=== PATIENT | female | born 1955 | race Caucasian/White ===

== ENCOUNTER 2022-09-26 16:45 | Emergency (ER) | payer MEDICAID ==
[~2022-09-26] VITALS: Ht 152.4 cm; Wt 68.9 kg
--- NOTE | 2022-09-26 17:02 | NUR ---
TO ER BED 4. [id number] HOME C/O R KNEE PAIN +DEFORMITY S/P MECHANICAL GLF.100MCG FENTANYL GIVEN LEARNING AND DEVELOPMENT ASSOCIATE. BLOOD GLUCOSE 470 IN THE FIELD. PAIN 8/10 ON PAIN SCALE. ATTACHED TO MONITOR, VITALS WITHIN NORMAL LIMITS. AWAITING MD ORDERS.
[2022-09-26] MEDS ORDERED: MORPHINE SULFATE INJ 4 MG/ML DISP.SYRIN ONE (17:58)
[2022-09-26] MEDS ORDERED: MORPHINE SULFATE INJ 2 MG/ML DISP.SYRIN IV ONE (18:00)
--- NOTE | 2022-09-26 18:15 | NUR ---
DR AV VIDAL, TALKING TO DR MALDONADO.
--- NOTE | 2022-09-26 18:37 | NUR ---
COVID TEST COLLECTED AND SENT
--- NOTE | 2022-09-26 18:40 | NUR ---
PT TAKEN TO CT VIA [facility]
[2022-09-26 19:02] LABS: CALCIUM, SERUM 8.9 mg/dL (8.5-10.1); CREATININE 0.8 mg/dL (0.6-1.3); POTASSIUM 4.1 mmol/L (3.5-5.1)
--- NOTE | 2022-09-26 19:15 | NUR ---
ELSIE OCCUPATIONAL NURSE GAVE AUTHORIZATION # [id number], ADMITING AWARE.
--- NOTE | 2022-09-26 19:21 | NUR ---
DR. FONSECA ON THE PHONE WITH DR. MALDONADO
--- NOTE | 2022-09-26 19:50 | NUR ---
CT IMAGING SENT TO DR. LEY.
[2022-09-26 20:05] LABS: BASOPHILS % (AUTO) 0.1 % (0.0-2.0); HEMATOCRIT 37 % (33-45); HEMOGLOBIN 12.7 g/dL (11.5-14.8); LYMPHOCYTES # (AUTO) 1.1 K/uL (0.8-4.8); LYMPHOCYTES % (AUTO) 10.7 % (20.0-44.0); MEAN CORPUSCULAR HGB CONC 35 g/dl (31.0-36.0); MEAN CORPUSCULAR VOLUME 90 fL (82-100); MONOCYTES # (AUTO) 0.4 K/uL (0.1-1.30); MONOCYTES % (AUTO) 3.3 % (2.0-12.0); NEUTROPHILS # (AUTO) 9.2 K/uL (1.8-8.9); NEUTROPHILS % (AUTO) 85.9 % (43.0-81.0); PLATELET COUNT (AUTO) 246 K/uL (150-450); RED BLOOD CELL COUNT(AUTO) 4.04 MIL/uL (4.0-5.2); WHITE BLOOD COUNT (AUTO) 10.7 K/uL (4.3-11.0)
--- NOTE | 2022-09-26 20:16 | NUR ---
DR. LEY ON THE PHONE WITH DR. MALDONADO
--- NOTE | 2022-09-26 20:20 | NUR ---
CLINICALS FAXED TO [facility], REFAL PLANNING AIDE
--- NOTE | 2022-09-26 23:28 | NUR ---
PT ACCEPTED TO [facility] ROOM [address] - ARON RN CALL FOR REPORT [phone]
--- NOTE | 2022-09-26 23:48 | NUR ---
ACCEPTING PHYSICIAN DR. MANNING [facility] ETA [phone]
[2022-09-26 23:50] VITALS: BP 124/75
--- NOTE | 2022-09-27 04:01 | NUR ---
CALLED [facility] TO F/U; ETA [phone]
--- NOTE | 2022-09-27 04:30 | NUR ---
REPORT GIVEN TO [facility] UN[address] AND AT PT'S BEDSIDE TO TRANSFER [facility]
== END 2022-09-27 05:03 | disposition short-term general hospital (02) ==
LOC: ER 16:47
DX: S72.401A Unspecified fracture of lower end of right femur, initial encounter for closed fracture (principal); Z20.822 Contact with and (suspected) exposure to COVID-19; W01.0XXA Fall on same level from slipping, tripping and stumbling without subsequent striking against object, initial encounter; Y93.89 Activity, other specified; Y92.002 Bathroom of unspecified non-institutional (private) residence as the place of occurrence of the external cause; Y99.8 Other external cause status
CPT/HCPCS: 99285; 96374; 29505; 73700; 87426; 72170; 73552; 73560; 85025; 80048; 85610; 85730; 36415; 87081; J2270; C9803